=== PATIENT | female | born 1985 | race African-American/Black ===

== ENCOUNTER 2023-07-14 12:35 | Observation (INO) | payer MEDICARE, MEDICAID, SELFPAY ==
[2023-07-14] VITALS (20 sets, daily range): BP systolic 103–178; BP diastolic 66–109; PULSE 85–103; RESP 11–36; TEMP 36.6; O2SAT 94–99; BMI 29.7
--- NOTE | ~2023-07-14 | XR_ITS ---
EXAMINATION: XR lumbar puncture diagnostic DATE: 07/15/2023 11:14 INDICATION: Altered mental status. Headache. TECHNIQUE: The procedure including the risks, benefits, and alternatives was discussed with the patie nt. Risks discussed included spinal headache, cerebrospinal fluid leak, bleeding, and infection. The patient understood the risks and agreed to proceed. A timeout was performed to verify the patient' s name, date of , and procedure to be performed. The skin overlying the L3-L4 level was prepped and draped in usual sterile fashion. Subcutaneous 1% lidocaine was used for local anesthesia. A 20 gauge spinal needle was advanced under fluoroscopic guidance. The needle was removed and the entry s ite was cleaned and dressed. There were no immediate complications. Fluoroscopy exposure time was 0. 1 minutes. The total number of images was 1. FINDINGS: Real-time fluoroscopy demonstrates the needle at the L3-L4 level. The opening pressure was 31 cm water (Normal range is variably defined as 6-20 cm water and up to 25 cm water in obese patient s. Pressure >25 cm water is one of the modified Dandy criteria for idiopathic intracranial hypertensi on). 14 mL of clear, colorless fluid was collected in 4 tubes. IMPRESSION: 1. Successful fluoro-guided lumbar puncture. 2. Elevated opening pressure. Reviewed, dictated and finalized at location A.
--- NOTE | ~2023-07-14 | MR_ITS ---
EXAMINATION: MR brain/brain stem wo/w con DATE: 07/15/2023 15:35 INDICATION: Altered mental status. TECHNIQUE: Magnetic resonance imaging (MRI) of the brain and brainstem was performed without and with 15 mL MultiHance intravenous contrast. COMPARISON: Head CT 07/14/2023 FINDINGS: There are scattered areas of nonspecific increased T2-weighted signal intensity in the cere bral white matter and ferdinand. There is no intracranial hemorrhage, acute infarction, or abnormal intrac ranial mass lesion. The ventricles are normal in size. The orbits are normal. The paranasal sinuses a re clear. The mastoid air cells are normal. IMPRESSION: 1. Extensive cerebral white matter disease and pontine disease. The differential diagnosis includes p osterior reversible encephalopathy syndrome (PRES), progressive multifocal leukoencephalopathy, anali ture chronic small vessel ischemic disease, demyelinating disease such as multiple sclerosis, drug ab use, vasculitis, or reactive astrocytosis (gliosis) secondary to nonspecific etiology. Reviewed, dictated and finalized at location A. IMPRESSION: 1. Extensive cerebral white matter disease and pontine disease. The differentia l diagnosis includes posterior reversible encephalopathy syndrome (PRES), progr essive multifocal leukoencephalopathy, premature chronic small vessel ischemic disease, demyelinating disease such as multiple sclerosis, drug abuse, vasculit is, or reactive astrocytosis (gliosis) secondary to nonspecific etiology.
--- NOTE | ~2023-07-14 | CT_ITS ---
EXAMINATION: CT chest abdomen pelvis w con DATE: 07/14/2023 18:13 INDICATION: AMS . TECHNIQUE: Computed tomography (CT) of the chest, abdomen, and pelvis was performed with 100 mL Omnip aque-350 intravenous contrast. Automated exposure control and iterative reconstruction technique were employed. The dose-length product was 783.41 mGy-cm. COMPARISON: None FINDINGS: Exam limited by nonstandard positioning. CHEST: Thoracic aorta: No significant dilation or calcification. Lung parenchyma and airways: Right middle lobe scar. Dependent atelectasis. Thoracic inlet, axillae and chest wall: No thyroid or soft tissue mass. No axillary lymphadenopathy. Mediastinum: No mass or lymphadenopathy. Heart and pericardium: Normal heart size. No pericardial effusion. Coronary artery calcifications: Absent. Pleura: No effusion or mass. Thoracic bones: No acute osseous finding in the chest. ABDOMEN/PELVIS: Liver: Hepatomegaly. Fatty infiltration. Biliary/Gallbladder: Gallbladder is normal. No bile duct dilation. Pancreas: No mass or duct dilation. Spleen: Normal. Adrenals:No mass. Kidneys: Severe bilateral atrophy. Transplant kidney in the right lower quadrant. GI tract: No small or large bowel dilation. Appendix not confidently visualized. Mesentery/Peritoneum: No ascites or free air. 3.4 x 2.6 cm soft tissue density mass in the lower and posterior abdominal mesentery. Retroperitoneum: No mass Pelvis: Normal urinary bladder. Fibroid uterus. Soft Tissues: Peritoneal dialysis catheter in the left upper mid abdomen, terminating in the left low er quadrant. Small fat-containing and mildly inflamed upper abdominal ventral hernia to the right of midline Abdominopelvic bones: No acute osseous finding in the abdomen/pelvis. IMPRESSION: Hepatomegaly and steatosis. Small, fat-containing, mildly inflamed right upper abdominal ventral hernia. 3.4 cm soft tissue density mass in the lower abdominal mesentery of uncertain significance. Possible enlarged lymph node or other soft tissue mass. Consider nonemergent MRI of the abdomen without and wi th contrast for further characterization. Reviewed, dictated and finalized at location K. IMPRESSION: Hepatomegaly and steatosis. Small, fat-containing, mildly inflamed right upper abdominal ventral hernia. 3.4 cm soft tissue density mass in the lower abdominal mesentery of uncertain s ignificance. Possible enlarged lymph node or other soft tissue mass. Consider n onemergent MRI of the abdomen without and with contrast for further characteriz ation.
--- NOTE | ~2023-07-14 | CT_ITS ---
EXAMINATION: CT brain wo con DATE: 07/14/2023 16:37 INDICATION: AMS . TECHNIQUE: Computed tomography (CT) of the head was performed without intravenous contrast. The mA wa s adjusted according to patient size. Iterative reconstruction technique was employed. The dose-lengt h product was 681.00 mGy-cm. COMPARISON: None. FINDINGS: No acute intracranial hemorrhage or extra-axial fluid collection. No hydrocephalus, mass, or herniation. No acute ischemic infarct. Moderate diffuse white matter hypodensity, greater than expected for age. Unremarkable dural venous sinus attenuation. No acute osseous abnormality. The aerated spaces are clear. IMPRESSION: Moderate nonspecific cerebral white matter disease. The differential diagnosis includes posterior rev ersible encephalopathy syndrome (PRES), progressive multifocal leukoencephalopathy, HIV encephalopath y, dysmyelinating disease, premature chronic small vessel ischemic disease (if the patient has severe cardiovascular risk factors), demyelinating disease such as multiple sclerosis, drug abuse, vasculit is, or reactive astrocytosis (gliosis) secondary to nonspecific etiology. Reviewed, dictated and finalized at location K. IMPRESSION: Moderate nonspecific cerebral white matter disease. The differential diagnosis includes posterior reversible encephalopathy syndrome (PRES), progressive multi focal leukoencephalopathy, HIV encephalopathy, dysmyelinating disease, prematur e chronic small vessel ischemic disease (if the patient has severe cardiovascul ar risk factors), demyelinating disease such as multiple sclerosis, drug abuse, vasculitis, or reactive astrocytosis (gliosis) secondary to nonspecific etiolo gy.
--- NOTE | 2023-07-14 12:59 | ECG_ITS ---
Measurements Intervals [place] Rate: 104 P: 42 FL: 141 QRS: 5 QRSD: 75 T: 32 QT: 348 QTc: 458 Interpretive Statements SINUS TACHYCARDIA POSSIBLE LEFT ATRIAL ENLARGEMENT [-0.1mV P WAVE IN V1/V2] POOR R-WAVE PROGRESSION BORDERLINE ECG NO PREVIOUS ECG AVAILABLE FOR COMPARISON Electronically Signed On 07-15-2023 7:23:04 CDT by Rafael Pantoja M.D.
--- NOTE | 2023-07-14 13:03 | ED.AMS ---
HPI - Altered Mental Status General Chief Complaint: Altered Mental Status Stated Complaint: Altered Mental Status Time Seen by Provider: 07/14/23 12:52 History of Present Illness HPI narrative: 38-year-old female presenting to the emergency department for evaluation of altered mental status. Patient was pulled over by police for erratic driving. Patient was placed in handcuffs and excoriated to the emergency department. Patient is alert but keeps saying it hurts please make it stop, please help me . Patient will make eye contact but would not say what is hurting, patient denies any other complaints, patient provides no other history. Related Data Home Medications Medication Instructions Recorded Confirmed atorvastatin 10 mg tablet 10 mg PO DAILY 07/14/23 07/14/23 docusate sodium 100 mg capsule 100 mg PO DAILY PRN Constipation 07/14/23 07/14/23 (Colace) famotidine 20 mg tablet 20 mg PO DAILY 07/14/23 07/14/23 magnesium oxide 400 mg (241.3 mg 400 mg PO DAILY 07/14/23 07/14/23 magnesium) tablet mycophenolate sodium 360 mg 360 mg PO BID 07/14/23 07/14/23 tablet,delayed release nifedipine 60 mg tablet,extended 60 mg PO BID 07/14/23 07/14/23 release polyethylene glycol 3350 17 gram 17 g PO DAILY PRN Constipation 07/14/23 07/14/23 oral powder packet (Miralax) prednisone 10 mg tablet 10 mg PO DAILY 07/14/23 07/14/23 sevelamer carbonate 800 mg tablet 800 mg PO TID 07/14/23 07/14/23 sulfamethoxazole 800 30 tablet PO DAILY 07/14/23 07/14/23 mg-trimethoprim 160 mg tablet tacrolimus 4 mg tablet,extended 14 mg PO DAILY 07/14/23 07/14/23 release 24 hr (Envarsus XR) trazodone 50 mg tablet 50 mg PO HS PRN Insomnia 07/14/23 07/14/23 valganciclovir 450 mg tablet 900 mg PO DAILY 07/14/23 07/14/23 Allergies Allergy/AdvReac Type Severity Reaction Status Date / Time No Known Allergies Allergy Verified 07/14/23 13:13 Review of Systems Review of Systems: ROS unobtainable: Yes unobtainable due to mental status PMFSH Past Medical History Medical History (Updated 07/14/23 @ 22:57 by Kevin John MD) Hypertension Long-term use of immunosuppressant medication Sarcoidosis Surgical History Surgical History (Updated 07/14/23 @ 22:12 by Sheree John PA-C) History of renal transplant Family History Family History (Updated 07/14/23 @ 22:05 by Sheree John PA-C) Other Unknown family medical history Social History Social History (Updated 07/14/23 @ 22:07 by Sheree John PA-C) 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 Unknown if the patient is a smoker. She denies alcohol and illicit substance use. Unable to identified next of kin at this time. Smoking status: Unknown if ever smoked Exam Narrative: APPEARANCE: No distress HEAD: normocephalic, atraumatic. EYES: PERRLA/EOMI, conjunctivae clear. NOSE: Normal no drainage EARS:TMS clear with good light reflex. THROAT: Pharynx clear, no exudate. NECK: Supple. No adenopathy, no masses. RESPIRATORY: Airway patent, respirations nonlabored. Clear to auscultation bilaterally, no rales, rhonchi, wheezing. CARDIOVASCULAR: Regular rate and rhythm without murmurs rubs or gallops. ABDOMINAL: No tenderness, normal bowel sounds, peritoneal dialysis port in place MUSCULOSKELETAL: Moves all extremities. Strength/ROM intact, No edema, No calf tenderness. NEURO: Alert. Cranial nerves II through XII intact. Grossly intact SKIN: Warm, dry. Normal Color Course Course Emergency Course: 48-year-old female presented the emergency department by EMS and PD for evaluation of altered mental status. Patient was treated with 2.5 mg IM Haldol and 1 mg IV Ativan to help facilitate the work-up including labs and imaging. Patient was afebrile but does have a leukocytosis of 13.1. Patient does have a potassium of 3.2 with elevated lactic acid, kidney function was normal. No elevation of AST ALT or ammonia
[2023-07-14] MEDS: LORazepam INJ (*CRX) 2 MG/ML VIAL 1 MG IV PUSH ×4 (13:14→19:02)
[2023-07-14] MEDS: Please add drug allergy info to patient profile. 1 EACH XX (13:14)
[2023-07-14] MEDS: HALOPERIDOL LACTATE 5 MG/ML VIAL 2.5 MG IM (13:14)
--- NOTE | 2023-07-14 13:15 | PC.NURSE ---
ERP orders for ativan to be given IM instead of IV at this time. ERP requests that pt gets medications on board to allow RN to attempt IV and so pt can receive CT. Both medications have been given IM.
[2023-07-14 14:25] LABS: Basophils Absolute Auto 0.1 K/mm3 (0.0-0.1); Basophils Percent Auto 0.5 % (0.2-1.2); Hematocrit 46.5 % (37.0-47.0); Hemoglobin 14.9 g/dL (12.0-15.0); Immature Granulocyte Absolute 0.76 K/mm3 (0.00-0.031); Immature Granulocyte Percent A 5.8 % (0-0.5); Lymphocytes Absolute Auto 0.78 K/mm3 (0.9-3.2); Lymphocytes Percent Auto 5.9 % (18.3-44.2); Mean Corpuscular Volume 87.2 fl (80-100); Mean Platelet Volume 9.8 fl (7.4-10.4); Monocytes Absolute Auto 0.7 K/mm3 (0.1-0.6); Monocytes Percent Auto 5.4 % (2.6-8.5); Neutrophils Absolute Auto 10.8 K/mm3 (1.3-6.7); Neutrophils Percent Auto 82.4 % (45.5-73.1); Platelet Count Result 369 k/mm3 (150-375); Red Blood Count 5.33 M/mm3 (4.2-5.4); Red Cell Distribution Width 14.6 % (11.5-14.5); White Blood Count 13.1 K/mm3 (4.5-10.0)
[2023-07-14 14:28] LABS: Glucose Point of Care 180 mg/dl (65-105)
[2023-07-14 14:36] LABS: Alanine Aminotransferase 36 U/L (6-35); Albumin Level 4.2 g/dL (3.5-5.1); Alkaline Phosphatase 93 U/L (38-126); Anion Gap 12 mmol/L (8-16); Aspartate Amino Transferase 31 U/L (14-36); Bilirubin,Total 0.6 mg/dL (0.2-1.3); Blood Urea Nitrogen 15 mg/dL (7-17); Calcium 9.3 mg/dL (8.4-10.2); Carbon Dioxide 22 mmol/L (22-30); Chloride 102 mmol/L (98-107); Creatine Kinase 77 U/L (30-135); Estimated Glomerular Filt Rate > 60; Glucose 168 mg/dL (65-110); Potassium 3.2 mmol/L (3.4-5.0); Sodium 136 mmol/L (137-145)
[2023-07-14 14:37] LABS: Lactic Acid Reflex 2.9 mmol/L (0.7-2.0)
[2023-07-14 14:37] LABS: Partial Thromboplastin Time 23.8 SECONDS (22.3-36.8); Prothrombin Time 13.5 Seconds (11.1-14.7)
[2023-07-14 15:07] LABS: Thyroid Stimulating Hormone 0.673 uIU/mL (0.465-4.680)
[2023-07-14] MEDS: HALOPERIDOL LACTATE 5 MG/ML VIAL IM (15:30)
[2023-07-14 15:43] LABS: Appearance Urine Clear (Clear); Bilirubin Urine Negative (Negative); Blood Urine Negative (Negative); Color Urine Yellow (Yellow); Glucose Urine UA 1+ mg/dL (Negative); Ketones Urine Trace mg/dL (Negative); Leukocyte Esterase Ur Negative LEU/UL (Negative); Nitrate Urine Negative (Negative); Protein Urine Negative (Negative); Specific Grav Ur 1.019 (1.001-1.035); Urobilinogen Urine 0.2 mg/dL (<2.0); pH Urine 6.5 (5.0-9.0)
[2023-07-14 15:44] LABS: Acetaminophen < 10 ug/mL (10-30); Ammonia < 9 umol/L (9-30); Ethanol < 10 mg/dL (<10); Salicylate 4.1 mg/dL (2-20)
[2023-07-14 15:45] LABS: Add Urine Microscopic? NO
[2023-07-14 15:57] LABS: Amphetamine Screen Urine Negative (Negative); Barbiturate Screen Urine Negative (Negative); Benzodiazepines Screen Urine Negative (Negative); Cannabinoid Screen Urine Negative (Negative); Cocaine Screen Urine Negative (Negative); Methadone Screen Urine Negative (Negative); Opiate Screen Urine Negative (Negative); Phencyclidine Screen Urine Negative (Negative)
[2023-07-14 16:51] LABS: Influenza A QL RT-PCR Negative (Negative); Influenza B QL RT-PCR Negative (Negative); RSV RNA, RT-PCR Negative (Negative); SARS-CoV-2 RNA PCR Negative (Negative)
[2023-07-14] MEDS: SODIUM CHLORIDE 0.9% IV 1,000 ML 999 ML IV CONT (16:51)
[2023-07-14 17:23] LABS: Reflex Lactic Acid Yes or No Add Lactic
[2023-07-14] MEDS: cefTRIAXone 2 GM/NS 100 ML 2 GM/100 ML BAG IVPB (18:53)
[2023-07-14 18:56] LABS: Lactic Acid 3.4 mmol/L (0.7-2.0)
--- NOTE | 2023-07-14 19:05 | PC.NURSE ---
This RN assumed care of patient. THis RN took patient report from ALBERTO Ny.
[2023-07-14] MEDS: HYDROmorphone HCL INJ (*CRX) 1 MG/ML SYR IV PUSH (19:40)
--- NOTE | 2023-07-14 20:33 | PC.NURSE ---
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
[2023-07-14] MEDS: HEIGHT NEEDED FOR VANCO DOSING 1 EACH XX (20:34)
[2023-07-14] MEDS: ACYCLOVIR SODIUM IVPB 800 MG in DEXTROSE 5% IN WATER 250 ML 266 MG IVPB (20:47)
--- NOTE | 2023-07-14 21:43 | PM.IMHP ---
H&P: HPI History of Present Illness Date/Time: 07/14/23 18:00 Chief Complaint: Altered mental status. Narrative: This is a 38-year-old female who presented to the emergency department via EMS for evaluation of altered mental status. She is not able to provide much in the way of history at this time, given her current clinical condition. She has never been seen at this facility before making it difficult to obtain her medical history but after much investigation it appears that she has a history of sarcoidosis and renal failure with renal transplant which may very well have been done in early summer 2022. She was pulled over by police not long prior to arrival for erratic driving and is my understanding that she was driving well below the speed limit on the interstate and was driving her car along the guard rail. She apparently did not pull worker for police and they had to box her car in to get her to stop. According to EMS documentation, she was alert and oriented x1 on their arrival and she was found slumped over her center console. EMS also reports that she was uncooperative with questioning and she kept repeating that her head and body hurt. They attempted an IV but the patient pulled her arm back and started yelling. At that time they requested a police escort to the ED and the patient was handcuffed and brought in. In triage she was able to tell the nurse that she has a history of sarcoidosis. She denied alcohol and illicit substance use. She continued to complain of pain but was not able to provide specifics. In the ED: She was afebrile on arrival with stable blood pressures and pulse. Labs were significant for a WBC count of 13.1 with 82.4% neutrophils on automated differential, sodium 136, potassium 3.2, BUN 15, creatinine 0.90, glucose 168, lactic acid 2.9, ammonia less than 9, TSH 0.673, and normal LFTs. Urine showed 1+ glucose and trace ketones. Urine drug screen was negative. Ethyl alcohol level and acetaminophen levels were undetectable. Salicylate level was 4.1. She tested negative for influenza, RSV, COVID. Brain CT showed moderate nonspecific cerebral white matter disease with a broad differential diagnosis to include PRES, demyelinating disease, premature chronic small-vessel ischemic disease, vasculitis, and others. CT of the chest, abdomen, and pelvis showed hepatomegaly with steatosis, mildly inflamed right upper abdominal ventral hernia, and a 3.4 cm soft tissue density mass in the lower abdominal mesentery of uncertain significant (may be enlarged lymph node or other soft tissue mass). Both kidneys were severely atrophic and a transplanted kidney was noted in the right lower quadrant. Lumbar puncture was ordered but was unsuccessful x2 despite the patient receiving sedatives prior to the procedure. She was empirically started on acyclovir, ceftriaxone, and vancomycin and she is being admitted to the ICU in this setting for close monitoring and further evaluation. Unfortunately we have not been able to get ahold of any family members. 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 Her external medication history thankfully shows the names of her physicians and we will need to contact them 1st thing in the morning to get a better picture into her medical history. She will likely need to be transferred to a tertiary care facility given her complex medical history. At the time of my evaluation she is a bit sedated after receiving lorazepam. She does intermittently open her eyes and attempts to answer questions however she only gives one-word answers and I was unable to glean any significant information from our interaction. Review of Systems Review of Systems: Unable to be obtained given current clinical condition. [facility] Past Medical History Medical History Hypertension Long-term use of immunosuppressant medication Sarcoid
--- NOTE | 2023-07-14 21:58 | ADMGEN ---
This patient, Josephine Rodriguez, was admitted to Intensive Care Unit-4. Patient/family oriented to hospital policies and general routines including ID bracelet, bed and alarms, visiting hours, pain management, procedures, bathroom and other care routines, personal items, smoking policy, room service/diet, and visiting hours. Information on how to activate the Rapid Response Team has been discussed. Patient/Family are encouraged to report perceived risks to care and to ask questions if they do not understand what they are told or what they should do.
--- NOTE | 2023-07-14 22:13 | PC.NURSE ---
pt arrived on unit. responds to painful stimuli. will open eyes. Hasspoken very little. Does not respond to questions. Vitals are currently stable. No other distress noted.
[2023-07-14] MEDS: LACTATED RINGERS 1,000 ML 75 ML IV CONT (22:35)
--- NOTE | 2023-07-14 22:46 | PC.NURSE ---
Pharmacist Phyllis from [facility] returned phone call and med list was reviewed. Nifedipine dosage differed, external med history notes it was updated 07/12 and [facility] showed that the Envarsus was increased to 14mg daily. Pharmacy was called because patient has AMS and is unable to answer questions.
[2023-07-14 23:31] LABS: HIV 1/2 Ab P24 Ag Result Negative (Negative)
[2023-07-15] VITALS (12 sets, daily range): BP systolic 134–169; BP diastolic 63–106; PULSE 60–100; RESP 14–25; TEMP 36.8–37.2; O2SAT 94–100
[2023-07-15 04:39] LABS: Basophils Percent Auto 0.2 % (0.2-1.2); Hematocrit 41.4 % (37.0-47.0); Hemoglobin 13.3 g/dL (12.0-15.0); Immature Granulocyte Absolute 0.32 K/mm3 (0.00-0.031); Immature Granulocyte Percent A 3.4 % (0-0.5); Lymphocytes Absolute Auto 0.48 K/mm3 (0.9-3.2); Lymphocytes Percent Auto 5.1 % (18.3-44.2); Mean Corpuscular HGB Conc 32.1 g/dl (32-36); Mean Corpuscular Hemoglobin 27.5 pg (26-34); Mean Corpuscular Volume 85.7 fl (80-100); Mean Platelet Volume 9.7 fl (7.4-10.4); Monocytes Absolute Auto 1.2 K/mm3 (0.1-0.6); Monocytes Percent Auto 12.4 % (2.6-8.5); Neutrophils Absolute Auto 7.5 K/mm3 (1.3-6.7); Neutrophils Percent Auto 78.9 % (45.5-73.1); Platelet Count Result 308 k/mm3 (150-375); Red Blood Count 4.83 M/mm3 (4.2-5.4); Red Cell Distribution Width 14.3 % (11.5-14.5); White Blood Count 9.5 K/mm3 (4.5-10.0)
[2023-07-15] MEDS: ACYCLOVIR SODIUM IVPB 800 MG in DEXTROSE 5% IN WATER 250 ML 266 MG IVPB ×2 (04:47→11:47)
[2023-07-15 04:55] LABS: Lactic Acid Reflex 1.8 mmol/L (0.7-2.0)
[2023-07-15 05:00] LABS: Alanine Aminotransferase 32 U/L (6-35); Albumin Level 3.8 g/dL (3.5-5.1); Alkaline Phosphatase 72 U/L (38-126); Anion Gap 7 mmol/L (8-16); Aspartate Amino Transferase 31 U/L (14-36); Bilirubin,Total 0.5 mg/dL (0.2-1.3); Blood Urea Nitrogen 8 mg/dL (7-17); Calcium 8.2 mg/dL (8.4-10.2); Carbon Dioxide 24 mmol/L (22-30); Chloride 99 mmol/L (98-107); Estimated CRCL calculation 104 ml/min; Estimated Glomerular Filt Rate > 60; Glucose 98 mg/dL (65-110); Magnesium 1.1 mg/dL (1.6-2.3); Phosphorus 2.8 mg/dL (2.5-4.5); Potassium 3.1 mmol/L (3.4-5.0); Sodium 130 mmol/L (137-145)
[2023-07-15 06:12] LABS: Erythrocyte Sedimentation Rate 4 mm/hr (0-20)
[2023-07-15] MEDS: cefTRIAXone 2 GM/NS 100 ML 2 GM/100 ML BAG IVPB (07:00)
--- NOTE | 2023-07-15 08:04 | PC.NURSE ---
patient very lethargic this morning however oriented x4. Patient requested to call her brother aMtias [phone] She does not want her mother called although who is listed as primary contact. I attempted to call the number provided by patient however vmailbox was full. Patient refused lumbar puncture this morning as ordered. Dr. Davis updated in person. Care continued.
[2023-07-15] MEDS: SODIUM CHLOR 3% 15 ML NEB (RESPIRATORY THERAPY) 6 ML INHALATION (08:12)
[2023-07-15] MEDS: SEVELAMER CARBONATE 800 MG TABLET PO ×2 (09:15→11:47)
[2023-07-15] MEDS: ATORVASTATIN 10 MG TABLET PO (09:16)
[2023-07-15] MEDS: MAGNESIUM OXIDE 400 MG TABLET PO (09:16)
[2023-07-15] MEDS: predniSONE 10 MG TABLET PO (09:16)
[2023-07-15] MEDS: FAMOTIDINE 20 MG TABLET PO (09:16)
[2023-07-15] MEDS: NIFEdipine 30 MG TAB.ER.24 60 MG PO (09:16)
[2023-07-15] MEDS: SULFAMETHOXAZOLE/TRIMETHOPRIM 800/160 MG DS TABLET 1 TAB PO (09:17)
--- NOTE | 2023-07-15 09:30 | PC.NURSE ---
patient remains lethargic however did verbally consent to lumbar puncture to Dr. Davis and myself.xray updated care continued
--- NOTE | 2023-07-15 11:10 | PC.NURSE ---
patient remains lethargic, VSS. patient was able to give written consent for lumbar puncture. This nurse transported patient to [facility] for procedure. uneventful, patient tolerated well. patient currently resting with no s/s of distress. care continued
[2023-07-15 11:20] LABS: Glucose CSF 49 mg/dL (40-70); Total Protein CSF 71 mg/dL (12-60)
--- NOTE | 2023-07-15 11:20 | WPDCNINT ---
Assessment and Plan Assessment and plan (1) Encephalopathy: Code(s): G93.40 - Encephalopathy, unspecified Status: Acute Assessment and Plan: Patient presented with encephalopathy and then did receive low-dose sedation yesterday in the ER which likely has worn off by now. Patient mental status and confusion has improved but does not appear to be at baseline. Differential diagnosis is broad which includes infectious etiology like encephalitis or meningitis since patient is on immunosuppressants, RPLS since patient has history of hypertension renal failure and is on calcineurin inhibitor, patient may have had a seizure and was postictal, neurosarcoidosis is another possibility along with a CVA. Patient was also seen by Neurology this morning and I have discussed case with neurologist. I also spoke to [facility] transfer center and appears the patient was discharge by Neurology at [facility] Hospital on 07/[address] was negative. MRIs ordered and pending Patient has gone down for LP will see what it shows Continue empiric vancomycin Rocephin and acyclovir until LP results are back although it appears unlikely Continue monitoring as patient has not had any episode of seizure here in the hospital Avoid sedatives Blood pressure control (2) Hypertension: Code(s): I10 - Essential (primary) hypertension Status: Acute Assessment and Plan: Continue nifedipine Added p.r.n. labetalol (3) Sarcoidosis: Code(s): D86.9 - Sarcoidosis, unspecified Status: Acute Assessment and Plan: Continue prednisone (4) Status post kidney transplant: Code(s): Z94.0 - Kidney transplant status Status: Acute Assessment and Plan: Continue prednisone and mycophenolate Hold tacrolimus and check level Plan to transfer patient to [facility] to manage by Transplant Nephrology (5) Electrolyte abnormality: Code(s): E87.8 - Other disorders of electrolyte and fluid balance, not elsewhere classified Status: Acute Assessment and Plan: Potassium and magnesium replacement ordered Plan DVT prophylaxis -SCDs Nutrition - Tube Feeds Code Status - Full Code Plan is to get LP and MRI. I have also spoken to [facility] transfer center and provided patient's information. I am waiting for call back and will transfer to [facility] once they accept the patient and bed is available. Patient needs to see Transplant Nephrology for medication adjustment, infectious disease for possible infectious etiology and Neurology patient has received workup in the past. Patient is agreeable to transfer. [employer] Consult Note Consult date: 07/15/23 Reason for consult: Encephalopathy HPI: Josephine Rodriguez is a 38 year old female with past medical history of sarcoidosis, chronic kidney disease status post renal transplant in April 2023 and hypertension was brought by police yesterday after she was found driving erratically. Patient was pulled over by by police for driving erratically on the side of the road but later she was found to be confused hence brought to ER. Patient was awake but confused and was unable to provide any meaningful history and was repeating random unrelated sentences. She was given sedative of 1 mg Ativan in 2.5 mg Haldol to obtain IV access and testing. Workup in the ER showed the patient was afebrile but had WBC count of 13.1. Mild hypokalemia but normal kidney function. Normal liver function. UA was negative urine drug screen was negative. Head CT was done showed moderate nonspecific cerebral white mental disease. CT abdomen pelvis is unremarkable. Lumbar puncture was attempted but were unsuccessful. Neurology's was consulted. Patient was started on empiric antibiotics to cover meningitis and encephalitis and she was admitted to ICU for further evaluation management. Initially no information was available accept patient's name from patient's transport driver's license and case monitor started working on obtaining
[2023-07-15] MEDS: POTASSIUM CHLORIDE 20 MEQ ER TABLET 40 MEQ PO ×2 (12:00→14:49)
[2023-07-15 12:14] LABS: Appearance CSF Clear (Clear); CSF source CSF; Color CSF Colorless (Colorless)
--- NOTE | 2023-07-15 12:29 | WPDNEURCNPN ---
Assessment and Plan Assessment and plan (1) AMS (altered mental status): Code(s): R41.82 - Altered mental status, unspecified Status: Acute (2) Status post kidney transplant: Code(s): Z94.0 - Kidney transplant status Status: Acute (3) Hypertension: Code(s): I10 - Essential (primary) hypertension Status: Acute (4) Long-term use of immunosuppressant medication: Code(s): Z79.60 - residential (current) use of unspecified immunomodulators and immunosuppressants Status: Acute (5) Sarcoidosis: Code(s): D86.9 - Sarcoidosis, unspecified Status: Acute Plan Ms. Rodriguez is a 38 year old female with a history of sarcoidosis, renal transplant in April 2023 (on chronic immunosuppression), hypertension presenting due to altered mental status of unclear etiology. Patient was hypertensive on presentation and is on tacrolimus, so there is concern that this may be a PRES-type picture. There are some cases of mycophenolate induced PRES as well. Chronic immunosuppression in the setting of transplantation also raises concern for opportunistic infections and PML (2/2 to ALEX virus). She is currently being treated empirically with IV antibiotics and acyclovir. 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 Unwitnessed seizure with prolonged post-ictal state is also a possibility. - MRI brain with and without contrast - LP with CSF studies-- routine studies as well as evaluation for HSV, VZV, ALEX virus, LULU - Continue antibiotics and acyclovir until cultures return - Consider routine EEG - Patient had recent transplant and is immunosuppressed. It would be prudent to transfer to [facility] as multiple specialties including renal, transplant, infectious disease will need to be involved, and she has previously received her care there. Consult date: 07/15/23 Reason for consult: Altered mental status HPI: Josephine Rodriguez is a 38 year old female with a history of sarcoidosis, hypertension, renal transplant in April 2023 (on chronic immunosuppression) presenting due to altered mental status. Details of patient's past medical history were no clear until after patient was admitted. 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 The rest of patient's history is obtained by collateral sources. On the day of presentation, patient was driving erratically by the police. She was taken to [facility] ED where she was oriented only to self at the time and agitated. She received doses of Ativan and Haldol. Work-up in the ED included lab work which showed normal renal and liver function. Her WBC was 13.1. UA was not concerning for infection. UDS was negative as well. CT head showed non-specific white matter changes. Lumbar puncture was attempted twice in the ED but unsuccessful. She was started on empiric antibiotics (vancomycin and Rocephin) as well as acyclovir. Her blood pressure was elevated to 178/109s in the ER, but has been more stable in the 140s since admission. Patient has not been febrile since admission. She is a bit more alert today but still not at baseline. Of note, patient receives her care for renal transplant and sees other specialists at [facility]. She was reportedly seen by a Neurologist due for headaches, and there may have been some concern for elevated pressures (IIH?). She is complaining of a headache today, but this a chronic symptom for her. For chronic immunosuppression she takes tacrolimus, mycophenolate, and prednisone. Review of Systems Review of Systems: ROS unobtainable: Yes unobtainable due to mental status PMFSH Past Medical History Medical History Hypertension Long-term use of immunosuppressant medication Sarcoidosis Surgical History Surgical History History of renal transplant Family History Family H
[2023-07-15 12:35] LABS: Nucleated Cell CSF 16 /uL (0-5); Red Blood Cell CSF 12 (0-2)
[2023-07-15 12:39] LABS: Lymphocytes CSF 59 % (40-80); Monocytes CSF 7 % (15-45); Neutrophils CSF 32 % (0-6)
[2023-07-15 12:40] LABS: Macrophages CSF 2
[2023-07-15] MEDS: MAGNESIUM SULF 2 GM/WATER 50ML 2 GM/50 ML BAG IVPB (13:04)
[2023-07-15] MEDS: LACTATED RINGERS 1,000 ML 75 ML IV CONT (13:42)
--- NOTE | 2023-07-15 14:46 | PM.IMPN ---
Progress Note: A&P Assessment and Plan (1) Encephalopathy: Code(s): G93.40 - Encephalopathy, unspecified Status: Acute Assessment and Plan: Mental status improving Patient is drowsy, able answer questions, still has headache, denies photophobia, nausea vomiting No focal weakness Suspecting meningitis, encephalitis, pulse take 0 status up to seizure, neurosarcoidosis, CVA Consulted neurologist, follow recommendation Lumbar puncture and brain MRI are done, pending reports Continue empiric vancomycin Rocephin and acyclovir until LP results are back although it appears unlikely Continue monitoring as patient has not had any episode of seizure here in the hospital Avoid sedatives [facility] has reached out to be [facility], patient is on awaiting list for transfer (2) Hypertension: Code(s): I10 - Essential (primary) hypertension Status: Acute Assessment and Plan: Continue nifedipine Added p.r.n. labetalol Operative medication for better blood pressure control (3) Sarcoidosis: Code(s): D86.9 - Sarcoidosis, unspecified Status: Acute Assessment and Plan: Continue prednisone (4) Status post kidney transplant: Code(s): Z94.0 - Kidney transplant status Status: Acute Assessment and Plan: Per patient statement, patient received right kidney transplantation in April 2023 in [facility] Continue prednisone and mycophenolate, hold tacrolimus and check level per conditioning yard supervisor Plan to transfer patient to [facility] to manage by Transplant Nephrology (5) Electrolyte abnormality: Code(s): E87.8 - Other disorders of electrolyte and fluid balance, not elsewhere classified Status: Acute Assessment and Plan: Potassium and magnesium replacement ordered Plan DVT prophylaxis -SCDs Nutrition - Tube Feeds Code Status - Full Code Subjective Date/time seen: 07/15/23 14:46 Interval history: I saw and examined patient and issue. Patient came back from lumbar puncture, patient has and headache, denies photophobia, nausea vomiting. Patient is afebrile, blood pressure stable. I reviewed Labs and image , Exam Narrative: General: Pt is awake but drowsy and in NAD dry mucous blood pressure, PERRLA, EOMI, no jaundice Lungs/Chest: Trachea central Clear BS B/L, No crackles or wheezing. Cardiac: RRR. Normal S1 S2. No murmurs Circulation: Pedal pulses are intact and symmetrical. Abdomen: Normal bowel sounds.. Soft. NT. ND. Extremities: No clubbing, cyanosis or edema. Warm : Agosto in place Neurologic: Patient is drowsy answer questions, move all extremities, no focal weakness, Skin: No Rash Objective Data Vital Signs Vital Signs: Vital Signs - 24 hr 07/14/23 15:36 07/14/23 17:01 07/14/23 17:02 Temperature Pulse Rate Respiratory Rate Blood Pressure 145/88 H Pulse Oximetry 99 97 97 Oxygen Delivery Fraction of Inspired Oxygen 07/14/23 17:03 07/14/23 19:37 07/14/23 19:48 Temperature Pulse Rate 94 99 Respiratory Rate 11 L 34 H Blood Pressure Pulse Oximetry 98 96 94 Oxygen Delivery Fraction of Inspired Oxygen 07/14/23 20:01 07/14/23 20:02 07/14/23 20:03 Temperature Pulse Rate 102 H 101 H 94 Respiratory Rate 21 H 20 22 H Blood Pressure 170/99 H Pulse Oximetry 96 96 96 Oxygen Delivery Fraction of Inspired Oxygen 07/14/23 20:27 07/14/23 20:30 07/14/23 20:46 Temperature Pulse Rate 102 H 103 H 94 Respiratory Rate 36 H 32 H 19 Blood Pressure Pulse Oximetry 95 95 95 Oxygen Delivery Fraction of Inspired Oxygen 07/14/23 20:47 07/14/23 20:51 07/14/23 21:00 Temperature Pulse Rate 98 103 H 95 Respiratory Rate 19 17 18 Blood Pressure 167/101 H 167/93 H Pulse Oximetry 95 95 95 Oxygen Delivery Fraction of Inspired Oxygen 07/14/23 21:02 07/14/23 22:00 07/14/23 22:00 Temperature Pulse Rate 102 H 85 89 Respiratory Rate 19 20 Blood Pressure
--- NOTE | 2023-07-15 15:08 | PC.NURSE ---
patient is awake alert and oriented x3 with some confusion. Family at the bedside at this time and stated she did this last week after receiving a patch for dizziness to wear. We will attempt to find out type of patch otherwise it remains unknown at this time. Patient currently gone to MRI. Care continued.
--- NOTE | 2023-07-15 15:53 | PC.NURSE ---
patient very alert and oriented, stating she is ready to leave. patient was informed that it would be against medical advice and she would be responsible for anything that may happen as a result. she has vancomycin infusing and agree to allow this to complete. will continue to update and treat
--- NOTE | 2023-07-15 16:29 | PC.NURSE ---
patient alert and oriented, leaving AMA. was told [facility] accepted to neuro due to her neuro sarchoidosis. Stated she will call her own doctor when she gets home. IVs discontinued and charted against.
--- NOTE | 2023-07-15 16:32 | PC.NURSE ---
patient disconnected tele monitor, pulled 1 of 2 IV's out and stated she was going home. She stated she does not want to be here anymore and that she would call her doctor for a followup. Patient was alert and oriented x4, able to call her brother from landline phone, got dressed and walked out AMA. Dr. Palencia at the desk and spoke with patient. she continues to refuse to stay for medical treatment
--- NOTE | 2023-07-15 16:40 | PM.DS ---
DS: Admitting Diagnosis Discharge Date today Admitting Diagnosis (1) Encephalopathy: ?Code(s): G93.40 - Encephalopathy, unspecified ?Status:?Acute ?Assessment and Plan: Mental status improving Patient is drowsy, able answer questions, still has headache, denies photophobia, nausea vomiting No focal weakness Suspecting meningitis, encephalitis, pulse take 0 status up to seizure, neurosarcoidosis, CVA Consulted neurologist, follow recommendation Lumbar puncture and brain MRI are done, pending reports Continue empiric vancomycin Rocephin and acyclovir until LP results are back although it appears unlikely Continue monitoring as patient has not had any episode of seizure here in the hospital Avoid sedatives Strip Deburrer has reached out to be [facility], patient is on awaiting list for transfer (2) Hypertension: ?Code(s): I10 - Essential (primary) hypertension ?Status:?Acute ?Assessment and Plan: Continue nifedipine Added p.r.n. labetalol Operative medication for better blood pressure control (3) Sarcoidosis: ?Code(s): D86.9 - Sarcoidosis, unspecified ?Status:?Acute ?Assessment and Plan: Continue prednisone (4) Status post kidney transplant: ?Code(s): Z94.0 - Kidney transplant status ?Status:?Acute ?Assessment and Plan: Per patient statement, patient received right kidney transplantation in April 2023 in [facility] Continue prednisone and mycophenolate, hold tacrolimus and check level per cdl program coordinator Plan to transfer patient to [facility] to manage by Transplant Nephrology (5) Electrolyte abnormality: ?Code(s): E87.8 - Other disorders of electrolyte and fluid balance, not elsewhere classified ?Status:?Acute ?Assessment and Plan: Potassium and magnesium replacement ordered DS: Discharge Diagnosis Discharge Diagnosis (1) Encephalopathy: Code(s): G93.40 - Encephalopathy, unspecified Status: Acute (2) Hypertension: Code(s): I10 - Essential (primary) hypertension Status: Acute (3) Sarcoidosis: Code(s): D86.9 - Sarcoidosis, unspecified Status: Acute Assessment and Plan: Continue prednisone (4) Status post kidney transplant: Code(s): Z94.0 - Kidney transplant status Status: Acute (5) Electrolyte abnormality: Code(s): E87.8 - Other disorders of electrolyte and fluid balance, not elsewhere classified Status: Acute DS: Summary Hospital Course Hospital Course: Per H&P,, this is a 38-year-old female who presented to the emergency department via EMS for evaluation of altered mental status. She is not able to provide much in the way of history at this time, given her current clinical condition. She has never been seen at this facility before making it difficult to obtain her medical history but after much investigation it appears that she has a history of sarcoidosis and renal failure with renal transplant which may very well have been done in early summer 2022. She was pulled over by police not long prior to arrival for erratic driving and is my understanding that she was driving well below the speed [place] the [place] and was [place] her car [place] the guard rail. She apparently did not assembler for puller over machine for police and they had to box her car in to get her to stop. According to EMS documentation, she was alert and oriented x1 on their arrival and she was found slumped over her center console. EMS also reports that she was uncooperative with questioning and she kept repeating that her head and body hurt. They attempted an IV but the patient pulled her arm back and started yelling. At that time they requested a police escort to the ED and the patient was handcuffed and brought in. In triage she was able to tell the nurse that she has a history of sarcoidosis. She denied alcohol and illicit substance use. She continued to complain of pain but was not able to provide specifics. In the ED: She was afebrile
--- NOTE | 2023-07-16 08:12 | P.PNCROSS_ITS ---
Event Note Event Note Event Note: Yesterday as the day went patient's mental status improved and she became alert and oriented x 4. I spoke to [facility] Neurology for transfer and they accepted the patient and told me that they will accept the transfer once a bed is available. The neurologist I spoke to was well aware of the patient and told me the patient was being evaluated for neurosarcoidosis and had LP done few days ago at [facility]. They were planning to start her on treatment but patient left AMA from the hospital. He requested that I sent results of her CSF and MRI at the time of transfer. Later patient informed the nursing staff that she wanted to leave [place]. On my request the charge nurse did explain to the patient about possible diagnosis of neurosarcoidosis which could be life-threatening if untreated and the fact the patient has been accepted at [facility] Hospital will be transferred to initiate treatment. Despite receiving this information patient still did not want to stay or transferred to [facility]. She told the nurse that she will leave and call her doctor to set up an outpatient appointment.
[2023-07-19 08:43] LABS: Tacrolimus Prograf 11.9 mcg/L
[2023-07-19 10:53] LABS: VZV DNA, QL PCR Not Detected (Not Detected); Varicella Zoster Source CSF
[2023-07-21 07:36] LABS: Toxoplasma Gondii DNA PCR CSF Not Detected
[2023-07-25 20:20] LABS: Herpes Simplex Type 1 DNA PCR Not Detected (Not Detected); Herpes Simplex Type 2 DNA PCR Not Detected (Not Detected)
[2023-07-27 20:36] LABS: Albumin, CSF 34.2 mg/dL (8.0-42.0); Albumin, Serum 3.6 g/dL (3.6-5.1); IgG, CSF 3.5 mg/dL (0.8-7.7); Immunoglobulin G, Serum 730 mg/dL (600-1640); Myelin Basic Protein, CSF <2.0 mcg/L (<=4.0); Oligoclonal Bands (IgG), CSF Absent (Absent); Synthesis Rate IgG, CSF -0.5 mg/24 h (-9.9-3.3)
[2023-07-28 15:27] LABS: Specimen Source CSF
[2023-07-28 15:28] LABS: CSF Toxoplasma Source CSF
== END 2023-07-15 16:55 | disposition left against medical advice (07) ==
LOC: ANHED 13:10 → ANHICU 21:37
PROVIDERS: Internal Medicine; Physician Assistant; Admitting Provider Hospitalist; Emergency Provider Emergency Medicine; Visit Provider Hospitalist
DX: G93.40 Encephalopathy, unspecified (principal); K63.89 Other specified diseases of intestine; D86.9 Sarcoidosis, unspecified; I10 Essential (primary) hypertension; E87.8 Other disorders of electrolyte and fluid balance, not elsewhere classified; E87.6 Hypokalemia; R74.02 Elevation of levels of lactic acid dehydrogenase [LDH]; K43.9 Ventral hernia without obstruction or gangrene; R19.7 Diarrhea, unspecified; K76.0 Fatty (change of) liver, not elsewhere classified; Z11.4 Encounter for screening for human immunodeficiency virus [HIV]; Z11.3 Encounter for screening for infections with a predominantly sexual mode of transmission; Z94.0 Kidney transplant status; Z79.52 Long term (current) use of systemic steroids; Z79.899 Other long term (current) drug therapy; Z20.822 Contact with and (suspected) exposure to COVID-19; Z79.60 Long term (current) use of unspecified immunomodulators and immunosuppressants; Z79.621 Long term (current) use of calcineurin inhibitor; Z53.29 Procedure and treatment not carried out because of patient's decision for other reasons
CPT/HCPCS: 36415; 62328; 70450; 70553; 71260; 74177; 80053; 80197; 80307; 81003; 81025; 82040; 82042; 82140; 82550; 82607; 82784; 82945; 82948; 83605; 83735; 83873; 83916; 84100; 84157; 84443; 85025; 85610; 85652; 85730; 86140; 86592; 86617; 86703; 87015; 87040; 87070; 87102; 87116; 87206; 87255; 87529; 87637; 87798; 87799; 87801; 89051; 93005; 94640; 96361; 96365; 96366; 96372; 96375; 96376; 99285; A9270; A9577; G0378; G0432; J0133; J0696; J1170; J1630; J2060; J3370; J3475; J7030; J7060; J7120; J7512; Q9967